=== PATIENT | female | born 1960 | race Two or more races ===

== ENCOUNTER 2022-11-12 22:07 | Emergency (ER) | payer OTHER ==
[~2022-11-12] VITALS: Ht 152.4 cm; Wt 60.0 kg
[2022-11-12] MEDS ORDERED: EPINEPHrine HCL 1 MG/10 ML SYRG IV ONE (22:19)
[2022-11-12] MEDS ORDERED: MAGNESIUM SULF 50% 40 MEQ/10 ML VL IV ONE (22:19)
[2022-11-12] MEDS ORDERED: LORazepam 2MG/ML-1ML VIAL IV ONE (22:30)
[2022-11-12 23:05] LABS: Basophils # (auto) 0 10 ^3/uL (0-0.2); Basophils % (auto) 0.2 % (0.0-2.0); Eosinophils # (auto) 0 10 ^3/uL (0-0.8); Eosinophils % (auto) 0.1 % (0.0-7.0); Hematocrit 39.4 % (36.0-46.0); Lymphocytes % (auto) 6.2 % (10.0-50.0); Mean Corpuscular Hemoglobin 31.7 pg (28.0-32.0); Mean Corpuscular Hgb Conc. 33.1 g/dL (32.0-36.0); Mean Corpuscular Volume 95.9 fL (80.0-100.0); Monocytes # (auto) 0.9 10 ^3/uL (0-1.3); Monocytes % (auto) 5.7 % (0.0-12.0); Neutrophils # (auto) 13.5 10 ^3/uL (1.6-8.6); Neutrophils % (auto) 87.8 % (37.0-80.0); Nucleated Red Blood Cells % 0.1 %; Red Blood Cells 4.11 10^6/uL (4.0-5.20); White Blood Cell 15.4 10^3/uL (4.4-10.8)
[2022-11-12 23:22] LABS: INR 1.24 (0.9-1.15); Partial Thromboplastin Time 30.3 sec (24.6-33.4)
[2022-11-12 23:23] LABS: Albumin 2.5 g/dL (3.4-5.0); Calcium 7.7 mg/dL (8.5-10.1); Potassium 4.5 mmol/L (3.5-5.1)
[2022-11-12 23:25] LABS: Bilirubin, Total 0.4 mg/dL (0.2-1.0); Total Protein 7.6 g/dL (6.4-8.2)
[2022-11-12] MEDS ORDERED: ACETYLCYSTEINE 20%(200MG/ML) SOL 4ML NEB ONE (23:30)
[2022-11-12] MEDS ORDERED: ALBUTEROL SULF 2.5 MG/0.5ML(0.5%) NEB SOLN NEB ONE (23:30)
[2022-11-12] MEDS ORDERED: LACTATED RINGER'S 1,000 ML IV ONE (23:45)
[2022-11-13] MEDS ORDERED: AZITHROMYCIN 500MG/ 250ML 250 ML IV ONE (00:15)
[2022-11-13] MEDS ORDERED: DexAMETHasone SOD PHOS 10MG/1ML VIAL INJ IV ONE (00:15)
[2022-11-13] MEDS ORDERED: ONDANSETRON HCL 4 MG/2 ML VIAL IV ONE (00:30)
[2022-11-13 01:00] LABS: Lactic Acid w/Reflex 2.6 mmol/L (0.4-2.0)
[2022-11-13] MEDS ORDERED: MORPHINE SULFATE 4 MG/ML SYR/VIAL IV ONE (01:00)
[2022-11-13] MEDS ORDERED: cefTRIAXone 1GM/50ML D5W 50 ML IV ONE (01:30)
[2022-11-13] MEDS ORDERED: ASPirin 325 MG TAB PO ONE (01:45)
[2022-11-13] MEDS ORDERED: fentaNYL Drip 2500mCg/250mlNS 250 ML IV ONE (04:23)
[2022-11-13] MEDS ORDERED: fentaNYL Drip 2500mCg/250mlNS 250 ML IV SCH (04:30)
[2022-11-13] MEDS ORDERED: MIDAZOLAM HCL 5 MG/ML-1ML VIAL ONE (04:37)
[2022-11-13] MEDS ORDERED: MIDAZOLAM DRIP 50 mg/50mL 50 ML IV ONE (04:37)
[2022-11-13] MEDS ORDERED: NOREPINEPHRINE 8 MG/250ML KIT 250 ML IV ONE (05:00)
[2022-11-13] MEDS ORDERED: NOREPINEPHRINE 8 MG/250ML KIT 250 ML IV SCH (05:00)
[2022-11-13] MEDS ORDERED: SODIUM BICARBONATE 8.4% INJ 50ML SYRINGE ONE (05:06)
[2022-11-13] MEDS ORDERED: MAGNESIUM SULFATE 1GM/100ML 100 ML IV ONE (05:08)
[2022-11-13 05:15] VITALS: BP 98/12
[2022-11-13] MEDS ORDERED: EPINEPHrine HCL 250 ML IV ONE (05:15)
[2022-11-13] MEDS ORDERED: DOBUTamine 1000MCG/ML 250 ML IV ONE (05:33)
[2022-11-13 05:35] LABS: Alanine Aminotransferase 80 U/L (13-56); Albumin 1.8 g/dL (3.4-5.0); Anion Gap 8 (5-15); Aspartate Aminotransferase 135 U/L (15-37); BUN/Creatinine Ratio 37.4 (10.0-20.0); Blood Urea Nitrogen 37 mg/dL (7-18); Carbon Dioxide 28 mmol/L (21-32); Chloride 93 mmol/L (98-107); GFR African American 73 mL/min; GFR Non-African American 61 mL/min; Glucose 239 mg/dL (74-106); Magnesium 3.7 mg/dL (1.6-2.6); Potassium 5.3 mmol/L (3.5-5.1); Sodium 129 mmol/L (136-145)
[2022-11-13 05:38] LABS: Alkaline Phosphatase 73 U/L (45-117); Bilirubin, Total 0.5 mg/dL (0.2-1.0); Total Protein 5.5 g/dL (6.4-8.2)
[2022-11-13] MEDS ORDERED: DOBUTamine 1000MCG/ML 250 ML IV SCH (05:45)
[2022-11-13 06:11] LABS: Basophils # (auto) 0 10 ^3/uL (0-0.2); Basophils % (auto) 0.1 % (0.0-2.0); Eosinophils # (auto) 0 10 ^3/uL (0-0.8); Eosinophils % (auto) 0.1 % (0.0-7.0); Hematocrit 36.7 % (36.0-46.0); Lymphocytes # (auto) 3.1 10 ^3/uL (0.4-5.4); Lymphocytes % (auto) 14.9 % (10.0-50.0); Mean Corpuscular Hemoglobin 31.1 pg (28.0-32.0); Mean Corpuscular Hgb Conc. 30.1 g/dL (32.0-36.0); Mean Corpuscular Volume 103.2 fL (80.0-100.0); Monocytes # (auto) 1.1 10 ^3/uL (0-1.3); Monocytes % (auto) 5.3 % (0.0-12.0); Neutrophils # (auto) 16.4 10 ^3/uL (1.6-8.6); Neutrophils % (auto) 79.6 % (37.0-80.0); Nucleated Red Blood Cells % 0.1 %; Red Blood Cells 3.55 10^6/uL (4.0-5.20); Red Cell Distribution Width 14.2 % (11.8-14.3); White Blood Cell 20.6 10^3/uL (4.4-10.8)
[2022-11-13] MEDS ORDERED: MIDAZOLAM DRIP 50 mg/50mL 50 ML IV SCH (06:30)
[2022-11-13] MEDS ORDERED: MIDAZOLAM HCL 5 MG/ML-1ML VIAL IV ONE (06:30)
== END 2022-11-13 06:12 ==
LOC: EDBD 22:07 → ER 22:18
DX: I46.9 Cardiac arrest, cause unspecified (principal); R06.02 Shortness of breath; J93.9 Pneumothorax, unspecified; R77.8 Other specified abnormalities of plasma proteins; E87.1 Hypo-osmolality and hyponatremia; J18.9 Pneumonia, unspecified organism; F41.9 Anxiety disorder, unspecified; Z20.822 Contact with and (suspected) exposure to COVID-19
CPT/HCPCS: 31500; 36415; 36600; 71045; 80053; 82805; 82962; 83605; 83735; 83880; 84484; 85025; 85610; 85730; 87040; 87070; 87205; 87426; 93005; 94640; 96361; 96365; 96375; 99291; J0171; J0456; J1100; J1250; J2060; J2250; J2270; J2405; J3475; 94002; 99152